=== PATIENT | female | born 1990 | race Caucasian/White ===

== ENCOUNTER 2019-09-22 12:27 | Emergency (ER) | payer MEDICAID, OTHER ==
[~2019-09-22] VITALS: Ht 180.3 cm; Wt 69.0 kg
--- NOTE | 2019-09-22 12:33 | NUR ---
ICE PACK PLACE TO LT ANKLE IN TRIAGE
[2019-09-22] MEDS ORDERED: OXYcodone/APAP 5/325MG TABLET PO ONE (13:00)
[2019-09-22] MEDS ORDERED: OXYcodone/APAP 5/325MG TABLET ONE (13:14)
[2019-09-22] MEDS ORDERED: BIRTHCONTROL (13:17)
--- NOTE | 2019-09-22 14:21 | NUR ---
PT AWAITING SPLINT APPLICATION & CRUTCHES.
--- NOTE | 2019-09-22 14:37 | NUR ---
WORKFORCE ADVISOR BS FOR SPLINTING.
--- NOTE | 2019-09-22 15:16 | NUR ---
PT C/O LIGHTHEADEDNESS. SITTING ON BEDSIDE, EATING IVY CRACKERS.
[2019-09-22] MEDS ORDERED: SODIUM CHLORIDE FLUSH 10ML SYR IVF ONE (15:30)
[2019-09-22] MEDS ORDERED: SODIUM CHLORIDE 0.9% 1,000ML IVBOLUS ONE (15:30)
--- NOTE | 2019-09-22 15:30 | NUR ---
PER PROVIDER, PT GOING TO HAVE ADDITIONAL TESTS ORDERED.
--- NOTE | 2019-09-22 15:40 | NUR ---
CARDIAC MONITORING IN PROGRESS. PT SITTING ON BED, TALKING W/ GRANDMA. CXR NOW BS.
[2019-09-22 16:06] LABS: BASOPHILS # (AUTO) 0.02 x10^3/uL (0-0.1); BASOPHILS % (AUTO) 0 % (0-1); EOSINOPHILS # (AUTO) 0.03 x10^3/uL (0-0.4); EOSINOPHILS % (AUTO) 0 % (1-7); LYMPHOCYTES # (AUTO) 1.37 x10^3/uL (1-3.4); LYMPHOCYTES % (AUTO) 19 % (22-44); MD NO; MEAN CORPUSCULAR HEMOGLOBIN 35.5 pg (27.0-34.8); MEAN CORPUSCULAR HGB CONC 33.8 g/dL (32.4-35.8); MEAN CORPUSCULAR VOLUME 105.2 fL (80-100); MEAN PLATELET VOLUME 9.1 fL (7.4-10.4); MONOCYTES # (AUTO) 0.32 x10^3/uL (0.2-0.8); MONOCYTES % (AUTO) 4 % (2-9); NEUTROPHILS # (AUTO) 5.52 x10^3/uL (1.8-6.8); NEUTROPHILS % (AUTO) 76 % (42-75); PLATELET COUNT 229 x10^3/uL (130-400); RED BLOOD COUNT 3.68 x10^6/uL (3.82-5.3); RED CELL DISTRIBUTION WIDTH 14.5 % (9.6-15.2)
[2019-09-22 16:12] LABS: ALBUMIN 4.6 g/dL (3.4-5.0); ANION GAP 14 mmol/L (5-15); CALCIUM 9.2 mg/dL (8.5-10.1); CHLORIDE 101 mmol/L (98-107)
[2019-09-22 16:18] LABS: CREATININE 0.67 mg/dL (0.55-1.02); TROPONIN I < 0.015 ng/mL (0.000-0.045)
--- NOTE | 2019-09-22 16:41 | NUR ---
PIV INITIATED: 20G LAC
[2019-09-22] MEDS ORDERED: MORPHINE SULFATE 4 MG/ML, 1ML IVPush PRN (17:00)
[2019-09-22] MEDS ORDERED: ONDANSETRON 2MG/ML, 2ML IVPush ONE (17:00)
--- NOTE | 2019-09-22 17:00 | NUR ---
PT TO BE MOVED TO ROOM 13 AFTER CTA. REVIEW OF CHART, ASSUME CARE OF PT AT THIS TIME.
[2019-09-22] MEDS ORDERED: MORPHINE SULFATE 4 MG/ML, 1ML ONE (17:29)
[2019-09-22] MEDS ORDERED: ONDANSETRON 2MG/ML, 2ML ONE (17:29)
[2019-09-22] MEDS ORDERED: OMNIPAQUE 350 MG/ML, 100ML BOTTLE ONE (17:30)
[2019-09-22 17:33] VITALS: BP 144/98
--- NOTE | 2019-09-22 17:35 | NUR ---
PT BACK FROM CT. MORPHINE AND ZOFRAN GIVEN PER ERP ORDER FOR 9/10 L ANKLE PAIN. VSS/UPDATED IN COMPUTER. CALL LIGHT WITHIN REACH. PT AND FAMILY UPDATED ON POC.
--- NOTE | 2019-09-22 18:04 | NUR ---
CTA RESULTS BACK, PT FOR RECHECK.
== END 2019-09-22 18:53 | disposition home or self-care (01) ==
LOC: ED 17:40
DX: S82.65XA Nondisplaced fracture of lateral malleolus of left fibula, initial encounter for closed fracture (principal); R55 Syncope and collapse; R07.89 Other chest pain; I10 Essential (primary) hypertension; W01.0XXA Fall on same level from slipping, tripping and stumbling without subsequent striking against object, initial encounter; Y93.89 Activity, other specified; Y92.009 Unspecified place in unspecified non-institutional (private) residence as the place of occurrence of the external cause; Y99.8 Other external cause status
CPT/HCPCS: 29515; 36415; 71045; 71275; 73610; 73630; 80048; 82040; 84484; 84703; 85025; 93005; 96361; 96374; 96375; 99284; J2270; J2405; J7030; Q9967